=== PATIENT | female | born 1950 | race Caucasian/White ===

== ENCOUNTER 2019-10-24 12:37 | Outpatient (CLI) | payer MEDICARE, BC ==
--- NOTE | 2019-10-24 14:48 | BD ---
Exam: DEXA Bone Density 10/24/19 HISTORY: Screening for postmenopausal osteoporosis. BMD (g/cm2) T-SCORE Z-SCORE Right forearm UD 0.418 -0.4 1.1 Mid 0.583 -0.4 1.6 1/ 0.632 1.0 1.1 Left forearm UD 0.443 0.0 1.5 Mid 0.575 -0.6 1.5 1/ 0.631 -1.1 1.0 Total: 0.548 -0.6 1.4 There has been interval improvement of 0.7% in the left forearm and 0.6% in the right forearm since . Impression: Osteopenia. POS: OFF
--- NOTE | 2019-10-24 16:37 | MMO ---
Bilateral MAMMO Bilat Screen [facility]. CLINICAL HISTORY: Patient is 69 years old and is seen for screening. The patient has the following family history of breast cancer: sister, at age 45. The patient has no personal history of cancer. VIEWS: The views performed were: bilateral craniocaudal with tomosynthesis and bilateral mediolateral oblique with tomosynthesis. FILMS COMPARED: The present examination has been compared to prior imaging studies performed at [facility] on 09/08/2015, 09/08/2016, 10/20/2017 and 10/22/2018. This study has been interpreted with the assistance of computer-aided detection. MAMMOGRAM FINDINGS: There are scattered fibroglandular densities. Benign calcifications are noted bilaterally. There are no suspicious masses, suspicious calcifications, or new areas of architectural distortion. IMPRESSION: THERE IS NO MAMMOGRAPHIC EVIDENCE OF MALIGNANCY. A ROUTINE FOLLOW-UP MAMMOGRAM IN 1 YEAR IS RECOMMENDED. THE RESULTS OF THIS EXAM WERE SENT TO THE PATIENT. ACR BI-RADS Category 2 - Benign finding MAMMOGRAPHY NOTE: 1. A negative mammogram report should not delay a biopsy if a dominant of clinically suspicious mass is present. 2. Approximately 10% to 15% of breast cancers are not detected by mammography. 3. Adenosis and dense breasts may obscure an underlying neoplasm. Reported by: KISHA HERNANDEZ MD Electonically Signed: [id number]
== END 2019-10-24 12:38 | disposition home or self-care (01) ==
LOC: BICMAMMO 12:37
PROVIDERS: ATTEND Internal Medicine
DX: Z12.31 Encounter for screening mammogram for malignant neoplasm of breast (principal); Z13.820 Encounter for screening for osteoporosis; M85.832 Other specified disorders of bone density and structure, left forearm; Z80.3 Family history of malignant neoplasm of breast
CPT/HCPCS: 77063; 77067; 77080

== ENCOUNTER 2020-11-13 13:27 | Outpatient (CLI) | payer MEDICARE, BC | END 2020-11-13 13:28 | disposition home or self-care (01) | LOC: BICMAMMO 13:27 | PROVIDERS: ATTEND Internal Medicine | DX: Z12.31 Encounter for screening mammogram for malignant neoplasm of breast (principal); Z80.3 Family history of malignant neoplasm of breast | CPT/HCPCS: 77063; 77067 ==

== ENCOUNTER 2024-12-20 11:28 | Outpatient (CLI) | payer MEDICARE, BC | END 2024-12-20 11:29 | disposition home or self-care (01) | LOC: SCSBT 11:28 | PROVIDERS: ATTEND Internal Medicine | DX: M85.89 Other specified disorders of bone density and structure, multiple sites (principal) | CPT/HCPCS: 77080 ==